=== PATIENT | male | born 1970 | race Caucasian/White ===

== ENCOUNTER 2020-08-14 17:03 | Observation (INO) | payer BC, OTHER, SELFPAY ==
--- NOTE | 2020-08-14 17:24 | RAD REPORT ---
EXAM DESCRIPTION: CT - Ct Stroke Brain Wo Cont - 08/14/2020 5:18 pm CLINICAL HISTORY: WEAKNESS Headache, drowsiness, CVA symptomology COMPARISON: No comparisons TECHNIQUE: All CT scans are performed using dose optimization technique as appropriate and may inclu de automated exposure control or mA/KV adjustment according to patient size. FINDINGS: No intracranial hemorrhage, hydrocephalus or extra-axial fluid collection.No areas of brai n edema or evidence of midline shift. The paranasal sinuses and mastoids are clear. The calvarium is intact. IMPRESSION: No acute intracranial abnormality. The findings were discussed with Dr. Gomez On 08/14/2020 at 5:20 p.m. by telephone.
[2020-08-14 17:35] LABS: Absolute Lymphocytes (CBC) 2.4 K/uL (0.7-4.9); Basophils % 0.4 % (0-1.3); Hematocrit 47.3 % (39.6-49.0); Lymphocytes % 26.6 % (15.3-44.8); MPV 8.3 fL (7.6-11.3); RBC Red Blood Cell Count 5.75 M/uL (4.33-5.43)
[2020-08-14 17:36] LABS: Protime INR 1.09
[2020-08-14 17:50] LABS: ALT/SGPT 34 U/L (12-78); AST/SGOT 17 U/L (15-37); Albumin 4.2 g/dL (3.4-5.0); Alkaline Phosphatase 75 U/L (45-117); BUN Blood Urea Nitrogen 16 mg/dL (7-18); Bicarbonate 29 mmol/L (21-32); Bilirubin Direct < 0.1 mg/dL (0-0.2); Bilirubin Total 0.4 mg/dL (0.2-1.0); Glucose Level 122 mg/dL (74-106); Magnesium 2.3 mg/dL (1.8-2.4); NT PRO-BNP 72 pg/mL (<125); Potassium 4.1 mmol/L (3.5-5.1); Protein, Total 7.8 g/dL (6.4-8.2); Sodium Level 141 mmol/L (136-145); Troponin (Emerg Dept Use Only) < 0.02 ng/mL (0.0-0.045)
[2020-08-14] MEDS ORDERED: ASPIRIN 81 MG CHEWABLE TABLET ONE (18:00)
[2020-08-14] MEDS ORDERED: NA CHLORIDE 0.9% 100 ML ONE (18:01)
[2020-08-14] MEDS ORDERED: FOLIC ACID 5 MG/ML VIAL ONE (18:02)
[2020-08-14] MEDS ORDERED: NA CHLORIDE 0.9% 1,000 ML ONE (18:02)
--- NOTE | 2020-08-14 18:30 | RAD REPORT ---
EXAM DESCRIPTION: RAD - Chest Single View - 08/14/2020 6:17 pm CLINICAL HISTORY: COUGH Chest pain. COMPARISON: CHEST SINGLE VIEW dated 09/05/2013 FINDINGS: Portable technique limits examination quality. The lungs are grossly clear. The heart is normal in size. No displaced fractures. IMPRESSION: No acute intrathoracic process suspected.
--- NOTE | 2020-08-14 18:30 | ER ---
Nurse's Notes [facility] Name: Lee Waters Age: 50 yrs Sex: Male : 1970 Arrival Date: 08/14/2020 Time: 17:07 Bed 16 Private MD: Diagnosis: Transient cerebral ischemic attack, unspecified;Weakness-left sided Presentation: 08/14 17:08 Acuity: AGA 2 ca1 17:08 Onset of symptoms was August 14, 2020 at 10:45. ca1 17:09 Risk Assessment: Do you want to hurt yourself or someone else? Patient reports no ca1 desire to harm self or others. 17:09 Coronavirus screen: Client denies travel out of the [place] in the last 14 days. At this ca1 time, the client does not indicate any symptoms associated with coronavirus-19. Ebola Screen: Patient negative for fever greater than or equal to 101.5 degrees Fahrenheit, and additional compatible Ebola Virus Disease symptoms Patient denies exposure to infectious person. Patient denies travel to an Ebola-affected area in the 21 days before illness onset. No symptoms or risks identified at this time. No acute neurological deficit is noted. The patients blood glucose was checked before arriving to the hospital and was found to be normal. Initial Sepsis Screen: Does the patient meet any 2 criteria? No. Patient's initial sepsis screen is negative. Does the patient have a suspected source of infection? No. Patient's initial sepsis screen is negative. 17:09 Method Of Arrival: Ambulatory ca1 17:09 Chief complaint: Patient states: At confucianist around 1045 noticed sluggishness of L side ca1 of the body, L leg and L arm. Took a nap at noon time, woke up still feeling sluggish and weak on the L side of the body. Still feels a little sluggish on the L Leg at this time. VAN Negative. Negative slurring. Negative facial droop. A\T\Ox 4. Stroke Activation: Symptom onset > 6 hours Physician: Stroke Attending; Name: ; Notified At: ; Arrived At: Physician: Chief Stroke Resident; Name: ; Notified At: ; Arrived At: Physician: Stroke Resident; Name: ; Notified At: ; Arrived At: Physician: ED Attending; Name: ; Notified At: ; Arrived At: Physician: ED Resident; Name: ; Notified At: ; Arrived At: Historical: - Allergies: 17:31 No Known Allergies; ca1 - Home Meds: 17:31 Lexapro 10 mg Oral tab 1 tab once daily [Active]; lisinopril 5 mg Oral tab 1 tab once ca1 daily [Active]; - PMHx: 17:31 Hypertension; Anxiety; ca1 - Immunization history:: Flu vaccine is not up to date. - Social history:: Smoking status: Patient denies any tobacco usage or history of. - Family history:: not pertinent. Screenin:30 Abuse screen: Denies threats or abuse. Nutritional screening: No deficits noted. jd3 Tuberculosis screening: No symptoms or risk factors identified. Fall Risk Ambulatory Aid- None/Bed Rest/Nurse Assist (0 pts). Gait- Normal/Bed Rest/Wheelchair (0 pts) Mental Status- Oriented to own ability (0 pts). Total Queen Fall Scale indicates No Risk (0-24 pts). Assessment: 17:08 VAN Scoring: Arm Drift: Patients demonstrates NO arm weakness. Patient is VAN Negative. ca1 17:26 Patient has been NPO before screening. The patient is alert, and able to follow ca1 commands. The patient does not exhibit slurred or garbled speech. The patient is not exhibiting difficulty speaking. The patient does not exhibit difficulty understanding words. The patient is able to swallow own secretions with no drooling or need for suction. Patient tolerated one teaspoon of water. No drooling, immediate coughing, gurgling, or clearing of the throat was noted. The patient tolerated 90mL of water. No drooling, immediate coughing, gurgling, or clearing of the throat was noted. The patient passed the bedside swallow screening. Oral medications may be given as ordered. Contact Physician for further diet orders. Provider notified of bedside swallow screening results: Baljinder Gomez MD. 17:50 T-PA (Activase) Screening: Contraindications: Patient reports onset of signs and jd3 symptoms of stroke greater than 6 hours ago:. General: Appears in no apparent distress. comfortable, Behavior is calm, cooperative, appropriate for age. Pain: Denies pain. Neuro: Level of Consciousness is awake, alert, obeys commands, Oriented to person, place, time, situation, Picking Machine Operator Helper are equal bilaterally Moves all extremities. Full function Gait is steady, Speech is normal, Facial symmetry appears normal, Pupils are PERRLA, Intact Reports numbness in left arm and left leg since 1000 today. Cardiovascular: Denies chest pain, Capillary refill < 3 seconds Patient's skin is warm and dry. Rhythm is regular. Respiratory: Airway is patent Respiratory effort is even, unlabored, Respiratory pattern is regular, symmetrical, Denies cough, shortness of breath. GI: No signs and/or symptoms were reported involving the gastrointestinal system. : No signs and/or symptoms were reported regarding the genitourinary system. EENT: No signs and/or symptoms were reported regarding the EENT system. Derm: Skin is intact, Skin is dry, Skin is normal, Skin temperature is warm. Musculoskeletal: Circulation, motion, and sensation intact. Range of motion: intact in all extremities. 18:48 Reassessment: Patient appears in no apparent distress at this time. No changes from jd3 previously documented assessment. Patient and/or family updated on plan of care and expected duration. Pain level reassessed. Patient is alert, oriented x 3, equal unlabored respirations, skin warm/dry/pink. Patient denies pain at this time. 19:23 Reassessment: Patient appears in no apparent distress at this time. Patient and/or mg2 family updated on plan of care and expected duration. Pain level reassessed. Patient is alert, oriented x 3, equal unlabored respirations, skin warm/dry/pink. 21:36 Reassessment: nurse will call me for report. mg2 21:50 Reassessment: Patient appears in no apparent distress at this time. mg2 Vital Signs: 17:20 BP 149 / 86; Pulse 91; Resp 16 S; Temp 98.1(O); Pulse Ox 100% on R/A; Weight 117.93 kg ca1 (R); Height 6 ft. 2 in. (187.96 cm) (R); Pain 0/10; 18:48 BP 173 / 119; Pulse 80; Resp 17 S; Pulse Ox 99% on R/A; jd3 19:23 BP 164 / 108; Pulse 81; Resp 18; Pulse Ox 100% on R/A; Pain 0/10; mg2 20:30 BP 150 / 82; Pulse 90; Resp 18; Pulse Ox 100% on R/A; mg2 21:35 BP 145 / 89; Pulse 80; Resp 18; Pulse Ox 100% on R/A; mg2 17:20 Body Mass Index 33.38 (117.93 kg, 187.96 cm) ca1 18:48 provider notified of high BP jd3 NIH Stroke Scale Scores: 17:50 NIHSS Score: 0 jd3 18:26 NIHSS Score: 0 [facility] ED Course: 17:07 Patient arrived in ED. bg2 17:10 Baljinder Gomez MD is Attending Physician. amy 17:15 Triage completed. ca1 17:23 Indy Bacon, RN is Primary Nurse. iw 17:23 Initial lab(s) drawn, by me, sent to lab. Inserted saline lock: 20 gauge in right iw antecubital area, using aseptic technique. Blood collected. 17:31 Arm band placed on right wrist. ca1 17:54 Víctor Desai, MAURICIO is Primary Nurse. jd3 18:29 Josh Raphael MD is Hospitalizing Provider. amy 18:57 Patient has correct armband on for positive identification. Bed in low position. Call jd3 light in reach. Side rails up X 1. threat monitoring analyst on. Pulse ox on. NIBP on. 19:02 No provider procedures requiring assistance completed. Patient admitted, IV remains in jd3 place. 20:07 Tucker Brown, RN is Primary Nurse. mg2 Administered Medications: 17:55 Drug: NS 0.9% 1000 ml Route: IV; Rate: 1 bolus; Site: right antecubital; jd3 18:55 Follow up: Response: No adverse reaction; IV Status: Completed infusion; IV Intake: jd3 1000ml 17:55 Drug: Aspirin Chewable Tablet 324 mg Route: PO; jd3 18:55 Follow up: Response: No adverse reaction jd3 17:56 Drug: foLIC Acid 1 mg Route: IVPB; Site: right antecubital; jd3 18:50 Follow up: Response: No adverse reaction; IV Status: Completed infusion jd3 18:41 Drug: PlaVIX 75 mg Route: PO; jd3 19:01 Follow up: Response: No adverse reaction jd3 18:41 Drug: Lipitor 20 mg Route: PO; jd3 19:01 Follow up: Response: No adverse reaction jd3 Point of Care Testing: Blood Glucose: 17:31 Blood Glucose: 124 mg/dL; ca1 Ranges: Intake: 18:55 IV: 1000ml; Total: 1000ml. jd3 Outcome: 18:29 Decision to Hospitalize by Provider. amy 21:53 Admitted to Med/surg accompanied by tech, via wheelchair, room 220, with chart, Report mg2 called to MAURICIO Todd 21:53 Condition: stable 21:53 Instructed on the need for admit, Demonstrated understanding of instructions. 21:54 Patient left the ED. mg2 NIH Stroke Scale - NIH Stroke Score Date: 08/14/2020 Time: 17:50 Total Score = 0 1a. Level of Consciousness (LOC) - 0(Alert) 1b. Level of Consciousness (LOC) (Year \T\ Age) - 0(Both) 1c. LOC Commands (Open \T\ Closes Eyes/Spiral Tube Winder Helper) - 0(Both) 2. Best Gaze (Lateral Gaze Paresis) - 0(Normal) 3. Visual Field Loss - 0(No visual loss) 4. Facial Palsy - 0(Normal) 5a. Left Arm: Motor (10-second hold) - 0(No drift) 5b. Right Arm: Motor (10-second hold) - 0(No drift) 6a. Left Leg: Motor (5-second hold - always test supine) - 0(No drift) 6b. Right Leg: Motor (5-second hold - always test supine) - 0(No drift) 7. Limb Ataxia (finger/nose \T\ heel/pinto - test with eyes open) - 0(Absent) 8. Sensory Loss (pinprick arms/legs/face) - 0(Normal) 9. Best Language: Aphasia (description/naming/reading) - 0(No aphasia) 10. Dysarthria (speech clarity - read or repeat words) - 0(Normal) 11. Extinction and Inattention (visual/tactile/auditory/spatial/personal) - 0(No abnormality) Initials: jd3 NIH Stroke Scale - NIH Stroke Score Date: 08/14/2020 Time: 18:26 Total Score = 0 1a. Level of Consciousness (LOC) - 0(Alert) 1b. Level of Consciousness (LOC) (Year \T\ Age) - 0(Both) 1c. LOC Commands (Open \T\ Closes Eyes/Spiral Tube Winder Helper) - 0(Both) 2. Best Gaze (Lateral Gaze Paresis) - 0(Normal) 3. Visual Field Loss - 0(No visual loss) 4. Facial Palsy - 0(Normal) 5a. Left Arm: Motor (10-second hold) - 0(No drift) 5b. Right Arm: Motor (10-second hold) - 0(No drift) 6a. Left Leg: Motor (5-second hold - always test supine) - 0(No drift) 6b. Right Leg: Motor (5-second hold - always test supine) - 0(No drift) 7. Limb Ataxia (finger/nose \T\ heel/pinto - test with eyes open) - 0(Absent) 8. Sensory Loss (pinprick arms/legs/face) - 0(Normal) 9. Best Language: Aphasia (description/naming/reading) - 0(No aphasia) 10. Dysarthria (speech clarity - read or repeat words) - 0(Normal) 11. Extinction and Inattention (visual/tactile/auditory/spatial/personal) - 0(No abnormality) Initials: amy Signatures: Baljinder Gomez MD MD cha Williams, Irene, RN RN iw Ariadne Rutherford bg2 Víctor Desai RN RN jd3 Tucker Brown RN RN mg2 Felicity Hamilton RN RN ca1 Corrections: (The following items were deleted from the chart) 19:02 18:48 BP 173 / 119; Pulse 80bpm; Resp 17bpm; Spontaneous; Pulse Ox 99% RA; jd3 jd3
--- NOTE | 2020-08-14 18:30 | EDPHYS ---
Physician Documentation [facility] Name: Lee Waters Age: 50 yrs Sex: Male : 1970 Arrival Date: 08/14/2020 Time: 17:07 Bed 16 Private MD: ED Physician Baljinder Gomez HPI: 08/14 18:24 This 50 yrs old Male presents to ER via Ambulatory with complaints of amy Possible stroke. 18:24 The patient's problem is reported as weakness, in the left upper extremity, in the left amy lower extremity. Onset: The symptoms/episode began/occurred this morning. Duration: The episode is continuous. Context: the episode(s) was witnessed, by family, , symptoms became apparent at 10:45. Historical: - Allergies: 17:31 No Known Allergies; ca1 - Home Meds: 17:31 Lexapro 10 mg Oral tab 1 tab once daily [Active]; lisinopril 5 mg Oral tab 1 tab once ca1 daily [Active]; - PMHx: 17:31 Hypertension; Anxiety; ca1 - Immunization history:: Flu vaccine is not up to date. - Social history:: Smoking status: Patient denies any tobacco usage or history of. - Family history:: not pertinent. ROS: 18:24 Constitutional: Negative for fever, chills, and weight loss, Eyes: Negative for injury, amy pain, redness, and discharge, ENT: Negative for injury, pain, and discharge, Neck: Negative for injury, pain, and swelling, Cardiovascular: Negative for chest pain, palpitations, and edema, Respiratory: Negative for shortness of breath, cough, wheezing, and pleuritic chest pain, Abdomen/GI: Negative for abdominal pain, nausea, vomiting, diarrhea, and constipation, Back: Negative for injury and pain, : Negative for injury, bleeding, discharge, and swelling, Skin: Negative for injury, rash, and discoloration, Psych: Negative for depression, anxiety, suicide ideation, homicidal ideation, and hallucinations, Allergy/Immunology: Negative for hives, rash, and allergies, Endocrine: Negative for neck swelling, polydipsia, polyuria, polyphagia, and marked weight changes. 18:24 Neuro: Positive for numbness, weakness, of the left arm and left leg. Exam: 18:24 Radiologist reports: negative amy 18:24 Constitutional: This is a well developed, well nourished patient who is awake, alert, and in no acute distress. Head/Face: Normocephalic, atraumatic. Eyes: Pupils equal round and reactive to light, extra-ocular motions intact. Lids and lashes normal. Conjunctiva and sclera are non-icteric and not injected. Cornea within normal limits. Periorbital areas with no swelling, redness, or edema. ENT: Nares patent. No nasal discharge, no septal abnormalities noted. Tympanic membranes are normal and external auditory canals are clear. Oropharynx with no redness, swelling, or masses, exudates, or evidence of obstruction, uvula midline. Mucous membranes moist. Neck: Trachea midline, no thyromegaly or masses palpated, and no cervical lymphadenopathy. Supple, full range of motion without nuchal rigidity, or vertebral point tenderness. No Meningismus. Chest/axilla: Normal chest wall appearance and motion. Nontender with no deformity. No lesions are appreciated. Cardiovascular: Regular rate and rhythm with a normal S1 and S2. No gallops, murmurs, or rubs. Normal PMI, no JVD. No pulse deficits. Respiratory: Lungs have equal breath sounds bilaterally, clear to auscultation and percussion. No rales, rhonchi or wheezes noted. No increased work of breathing, no retractions or nasal flaring. Abdomen/GI: Soft, non-tender, with normal bowel sounds. No distension or tympany. No guarding or rebound. No evidence of tenderness throughout. Back: No spinal tenderness. No costovertebral tenderness. Full range of motion. Male : Normal genitalia with no discharge or lesions. Skin: Warm, dry with normal turgor. Normal color with no rashes, no lesions, and no evidence of cellulitis. MS/ Extremity: Pulses equal, no cyanosis. Neurovascular intact. Full, normal range of motion. Neuro: Awake and alert, GCS 15, oriented to person, place, time, and situation. Cranial nerves II-XII grossly intact. Motor strength 5/5 in all extremities. Sensory grossly intact. Cerebellar exam normal. Normal gait. Psych: Awake, alert, with orientation to person, place and time. Behavior, mood, and affect are within normal limits. Vital Signs: 17:20 BP 149 / 86; Pulse 91; Resp 16 S; Temp 98.1(O); Pulse Ox 100% on R/A; Weight 117.93 kg ca1 (R); Height 6 ft. 2 in. (187.96 cm) (R); Pain 0/10; 18:48 BP 173 / 119; Pulse 80; Resp 17 S; Pulse Ox 99% on R/A; jd3 19:23 BP 164 / 108; Pulse 81; Resp 18; Pulse Ox 100% on R/A; Pain 0/10; mg2 20:30 BP 150 / 82; Pulse 90; Resp 18; Pulse Ox 100% on R/A; mg2 21:35 BP 145 / 89; Pulse 80; Resp 18; Pulse Ox 100% on R/A; mg2 17:20 Body Mass Index 33.38 (117.93 kg, 187.96 cm) ca1 18:48 provider notified of high BP jd3 NIH Stroke Scale Scores: 17:50 NIHSS Score: 0 jd3 18:26 NIHSS Score: 0 amy MDM: 17:40 Patient medically screened. amy 18:27 Differential diagnosis: CVA, TIA. Data reviewed: vital signs, nurses notes, lab test amy result(s), EKG, radiologic studies, CT scan, plain films. Data interpreted: surveillance monitor: rate is 91 beats/min, rhythm is regular, Pulse oximetry: on room air is 100 %. Test interpretation: by ED physician or midlevel provider: ECG, plain radiologic studies. Counseling: I had a detailed discussion with the patient and/or guardian regarding: the historical points, exam findings, and any diagnostic results supporting the discharge/admit diagnosis, lab results, radiology results. Physician consultation: Frederick Goldstein MD and will see patient in inpatient room, no tpa, ass and plavix, lipitor now. 18:30 ED course: began at 1045am, not a tps candidate, dw dr goldstein, aspirin, plavix, amy lipitor, folic acid is the plan. 08/14 17:14 Order name: Basic Metabolic Panel amy 08/14 17:14 Order name: CBC with Diff 08/14 17:14 Order name: LFT's 08/14 17:14 Order name: Magnesium amy 08/14 17:14 Order name: NT PRO-BNP 08/14 17:14 Order name: PT-INR 08/14 17:14 Order name: Troponin (emerg Dept Use Only) [facility] 08/14 17:50 Order name: Basic Metabolic Panel; Complete Time: 17:59 EDMS 08/14 17:50 Order name: Liver (Hepatic) Function; Complete Time: 17:59 EDMS 08/14 17:50 Order name: Troponin (Emerg Dept Use Only); Complete Time: 17:59 EDMS 08/14 17:50 Order name: NT PRO-BNP; Complete Time: 17:59 EDMS 08/14 17:50 Order name: Magnesium; Complete Time: 17:59 EDMS 08/14 18:05 Order name: CBC with Automated Diff; Complete Time: 18:10 EDMS 08/14 18:12 Order name: Protime (+INR) [facility] 08/14 17:14 Order name: CT Stroke Brain w/o Contrast [place] 08/14 17:14 Order name: XRAY Chest (1 view) [facility] 08/14 17:14 Order name: CT Stroke Brain w/o Contrast [facility] 08/14 17:14 Order name: CT Head Angio [facility] 08/14 17:25 Order name: CT; Complete Time: 17:59 [facility] 08/14 18:20 Order name: COVID-19 : Document "Date of Symptom Onset" if Symptomatic. [facility] 08/14 18:31 Order name: RAD [facility] 08/14 18:33 Order name: CT [facility] 08/14 18:39 Order name: CT [facility] 08/14 19:58 Order name: [facility] 08/14 20:54 Order name: SARS-COV-2 RT PCR [facility] 08/14 17:14 Order name: EKG; Complete Time: 17:15 [facility] 08/14 17:14 Order name: Cardiac monitoring; Complete Time: 17:57 [facility] 08/14 17:14 Order name: EKG - Nurse/Tech; Complete Time: 17:57 [facility] 08/14 17:14 Order name: IV Saline Lock; Complete Time: 17:32 [facility] 08/14 17:14 Order name: Labs collected and sent; Complete Time: 17:32 [facility] 08/14 17:14 Order name: O2 Per Protocol; Complete Time: 17:57 [facility] 08/14 17:14 Order name: O2 Sat Monitoring; Complete Time: 17:57 [facility] Administered Medications: 17:55 Drug: NS 0.9% 1000 ml Route: IV; Rate: 1 bolus; Site: right antecubital; jd3 18:55 Follow up: Response: No adverse reaction; IV Status: Completed infusion; IV Intake: jd3 1000ml 17:55 Drug: Aspirin Chewable Tablet 324 mg Route: PO; jd3 18:55 Follow up: Response: No adverse reaction jd3 17:56 Drug: foLIC Acid 1 mg Route: IVPB; Site: right antecubital; jd3 18:50 Follow up: Response: No adverse reaction; IV Status: Completed infusion jd3 18:41 Drug: PlaVIX 75 mg Route: PO; jd3 19:01 Follow up: Response: No adverse reaction jd3 18:41 Drug: Lipitor 20 mg Route: PO; jd3 19:01 Follow up: Response: No adverse reaction jd3 Point of Care Testing: Blood Glucose: 17:31 Blood Glucose: 124 mg/dL; ca1 Ranges: Critical Glucose Levels:Adult <50 mg/dl or >400 mg/dl <40 mg/dl or >180 mg/dl Disposition: 08/14/20 18:29 Hospitalization ordered by Josh Raphael for Observation. Preliminary diagnosis are Transient cerebral ischemic attack, unspecified, Weakness - left sided. - Bed requested for Telemetry/MedSurg (observation). - Status is Observation. mg2 - Condition is Stable. - Problem is new. - Symptoms have improved. NIH Stroke Scale - NIH Stroke Score Date: 08/14/2020 Time: 17:50 Total Score = 0 1a. Level of Consciousness (LOC) - 0(Alert) 1b. Level of Consciousness (LOC) (Year \\T\\ Age) - 0(Both) 1c. LOC Commands (Open \\T\\ Closes Eyes/Powertrain Engineer) - 0(Both) 2. Best Gaze (Lateral Gaze Paresis) - 0(Normal) 3. Visual Field Loss - 0(No visual loss) 4. Facial Palsy - 0(Normal) 5a. Left Arm: Motor (10-second hold) - 0(No drift) 5b. Right Arm: Motor (10-second hold) - 0(No drift) 6a. Left Leg: Motor (5-second hold - always test supine) - 0(No drift) 6b. Right Leg: Motor (5-second hold - always test supine) - 0(No drift) 7. Limb Ataxia (finger/nose \\T\\ heel/pinto - test with eyes open) - 0(Absent) 8. Sensory Loss (pinprick arms/legs/face) - 0(Normal) 9. Best Language: Aphasia (description/naming/reading) - 0(No aphasia) 10. Dysarthria (speech clarity - read or repeat words) - 0(Normal) 11. Extinction and Inattention (visual/tactile/auditory/spatial/personal) - 0(No abnormality) Initials: liana NIH Stroke Scale - NIH Stroke Score Date: 08/14/2020 Time: 18:26 Total Score = 0 1a. Level of Consciousness (LOC) - 0(Alert) 1b. Level of Consciousness (LOC) (Year \\T\\ Age) - 0(Both) 1c. LOC Commands (Open \\T\\ Closes Eyes/Powertrain Engineer) - 0(Both) 2. Best Gaze (Lateral Gaze Paresis) - 0(Normal) 3. Visual Field Loss - 0(No visual loss) 4. Facial Palsy - 0(Normal) 5a. Left Arm: Motor (10-second hold) - 0(No drift) 5b. Right Arm: Motor (10-second hold) - 0(No drift) 6a. Left Leg: Motor (5-second hold - always test supine) - 0(No drift) 6b. Right Leg: Motor (5-second hold - always test supine) - 0(No drift) 7. Limb Ataxia (finger/nose \\T\\ heel/pinto - test with eyes open) - 0(Absent) 8. Sensory Loss (pinprick arms/legs/face) - 0(Normal) 9. Best Language: Aphasia (description/naming/reading) - 0(No aphasia) 10. Dysarthria (speech clarity - read or repeat words) - 0(Normal) 11. Extinction and Inattention (visual/tactile/auditory/spatial/personal) - 0(No abnormality) Initials: amy Signatures: Dispatcher [employer] EDBaljinder Patel MD MD cha Attema, Lee, DIRECTOR FINANCIAL PLANNING-C DIRECTOR FINANCIAL PLANNING-Cla1 Myriam Pierson, MAURICIO RN cg Víctor Desai RN RN jd3 Tucker Brown RN RN mg2 Felicity Hamilton RN RN ca1 Corrections: (The following items were deleted from the chart) 21:02 18:29 Hospitalization Ordered by Josh Raphael MD for Observation. Preliminary cg diagnosis is Transient cerebral ischemic attack, unspecified; Weakness - left sided. Bed requested for Telemetry/MedSurg (observation). Status is Observation. Condition is Stable. Problem is new. Symptoms have improved. amy 21:54 21:02 08/14/2020 18:29 Hospitalization Ordered by Josh Raphael MD for mg2 Observation. Preliminary diagnosis is Transient cerebral ischemic attack, unspecified; Weakness - left sided. Bed requested for Telemetry/MedSurg (observation). Status is Observation. Condition is Stable. Problem is new. Symptoms have improved. cg
--- NOTE | 2020-08-14 18:32 | RAD REPORT ---
EXAM DESCRIPTION: CT - Head angio - 08/14/2020 6:10 pm CLINICAL HISTORY: TIA;Weakness Headache, drowsiness, CVA symptomology COMPARISON: Ct Stroke Brain Wo Cont dated 08/14/2020 TECHNIQUE: CT angiography of the head was performed with MIPs. All CT scans are performed using dose optimization technique as appropriate and may include automated exposure control or mA/KV adjustment according to patient size. FINDINGS: No evidence of aneurysm is detected. No flow-limiting stenosis or vascular malformation id entified. Antegrade flow is seen in the vertebral arteries. The vertebral arteries are codominant. The visualized dural venous sinuses are patent. IMPRESSION: No significant flow abnormality is detected.
--- NOTE | 2020-08-14 18:37 | RAD REPORT ---
EXAM DESCRIPTION: CT - Neck Angio - 08/14/2020 6:09 pm CLINICAL HISTORY: possible stroke Headache, drowsiness, CVA symptomology COMPARISON: No comparisons TECHNIQUE: CT angiography of the neck vessels was performed with MIPs. All CT scans are performed using dose optimization technique as appropriate and may include automated exposure control or mA/KV adjustment according to patient size. FINDINGS: A left aortic arch is identified with normal three vessel configuration of the great vesse ls. No significant flow abnormality is seen of the common carotid bilaterally. Small soft plaquing is seen in both carotid bulbs, with slightly irregular plaque noted on the left. No significant stenosis is identified involving the cervical segments of both internal carotid arteri es. Normal flow is seen within both vertebral arteries. IMPRESSION: Mild soft plaque is seen in both carotid bulbs, with mildly irregular plaque noted on th e left. No significant carotid stenosis is seen.
[2020-08-14] MEDS ORDERED: CLOPIDOGREL 75 MG TABLET ONE (18:46)
[2020-08-14] MEDS ORDERED: ATORVASTATIN 20 MG TAB ONE (18:46)
--- NOTE | 2020-08-14 20:30 | P.HP ---
Certification for Inpatient Patient admitted to: Observation With expected LOS: <2 Midnights Patient will require the following post-hospital care: None Practitioner: I am a practitioner with admitting privileges, knowledge of patient current condition, hospital course, and medical plan of care. Services: Services provided to patient in accordance with Admission requirements found in Title 42 Section 412.3 of the Code of Federal Regulations <Paul Conley - Last Filed: 08/14/20 20:26> Patient History Date of Service: 08/14/20 Primary Care Provider: Dr. Velasco Reason for admission: Left-sided weakness History of Present Illness: 50-year-old male with history of hypertension, anxiety presents emergency department for left-sided weakness. Patient reports that approximately 1045 this morning while he is in [employer] when he stood up he noticed that his left leg felt heavy, then noticed that his left arm was also feeling heavy. Patient tried to take a nap and then was walk around in his backyard and was persistent had increasing left-sided heaviness. Patient sent to the emergency room for evaluation CT head with and without contrast negative for acute findings chest x-ray unremarkable, labs unremarkable. Patient persist to have left-sided heaviness without objective weakness, ED provider wishes to admit for further evaluation and management. - Past Medical/Surgical History -: Hypertension -: Anxiety -: Basal cell carcinoma -: Basal cell carcinoma excision Psychosocial/ Personal History: Patient works as a heavy equipment operator apprentice lives with his - Family History Father -: Cancer - Social History Smoking Status: Never smoker Alcohol use: Yes CD- Drugs: No Caffeine use: Yes Place of Residence: Home <Paul Conley - Last Filed: 08/14/20 20:26> Date of Service: 08/15/20 <Josh Raphael - Last Filed: 08/15/20 17:43> Allergies No Known Allergies Allergy (Verified 08/15/20 00:15) Review of Systems Unremarkable Neurological: As per HPI <Paul Conley - Last Filed: 08/14/20 20:26> Physical Examination - Physical Exam General: Alert, In no apparent distress HEENT: Atraumatic, PERRLA, Mucous membr. moist/pink Neck: Supple, 2+ carotid pulse no bruit, No LAD Respiratory: Clear to auscultation bilaterally, Normal air movement Cardiovascular: Regular rate/rhythm, Normal S1 S2 Gastrointestinal: Normal bowel sounds, No tenderness Musculoskeletal: No tenderness Integumentary: No rashes Neurological: Normal gait, Normal speech, Normal strength at 5/5 x4 extr, Normal tone, Normal affect, Other (Patient reports sensation of heaviness to left upper and lower extremity) - Studies Laboratory Data (last 24 hrs) 08/14/20 17:22: PT 12.6 H, INR 1.09 08/14/20 17:22: WBC 9.20, Hgb 15.9, Hct 47.3, Plt Count 240 08/14/20 17:22: Sodium 141, Potassium 4.1, BUN 16, Creatinine 0.99, Glucose 122 H, Magnesium 2.3, Total Bilirubin 0.4, AST 17, ALT 34, Alkaline Phosphatase 75 <Paul Conley - Last Filed: 08/14/20 20:26> - Studies Laboratory Data (last 24 hrs) 08/14/20 17:22: PT 12.6 H, INR 1.09 08/14/20 17:22: WBC 9.20, Hgb 15.9, Hct 47.3, Plt Count 240 08/14/20 17:22: Sodium 141, Potassium 4.1, BUN 16, Creatinine 0.99, Glucose 122 H, Magnesium 2.3, Total Bilirubin 0.4, AST 17, ALT 34, Alkaline Phosphatase 75 <Josh Raphael - Last Filed: 08/15/20 17:43> Assessment and Plan - Plan Assessment Left-sided weakness rule out CVA Hypertension Anxiety Plan Left-sided weakness rule out CVA: MRI stroke protocol, echocardiogram ordered. Neurology consult in place. Patient has been taking daily aspirin at home, continue aspirin, Plavix, folic acid, statin therapy. Continue lisinopril but will allow for some permissive hypertension. Lipid, thyroid panel with morning labs. PT/speech therapy consult in place. Appreciate further input from neurology. Hypertension: Continue lisinopril, allow for permissive hypertension. Anxiety: Continue Lexapro, p.r.n. Xanax. Discharge Plan: Home - Advance Directives Does patient have a Living Will: No Does patient have a Durable POA for Healthcare: No - Code Status/Comfort Care Code Status Assessed: Yes (Full code) Critical Care: No Time Spent Managing Pts Care (In Minutes): 55 <Paul Conley - Last Filed: 08/14/20 20:26> - Plan Plan of care reviewed as noted above by Paul Conley Left sided heaviness /clumsiness of L leg and L arm MRI ordered patient with high level anxiety <Josh Raphael - Last Filed: 08/15/20 17:43>
[2020-08-14] MEDS ORDERED: ACETAMINOPHEN 500 MG TAB PO PRN (22:11)
[2020-08-14] MEDS ORDERED: ONDANSETRON 4 MG/2 ML VIAL IV PRN (22:11)
[2020-08-14 22:25] VITALS: BMI 33.4
[2020-08-14] MEDS: ALPRAZOLAM 0.25 MG TABLET PO PRN (23:10)
[2020-08-15 04:17] LABS: Absolute Lymphocytes (CBC) 2.1 K/uL (0.7-4.9); Basophils % 0.4 % (0-1.3); Hematocrit 43.7 % (39.6-49.0); Lymphocytes % 24.9 % (15.3-44.8); MPV 8.1 fL (7.6-11.3)
[2020-08-15 04:42] LABS: Albumin 3.6 g/dL (3.4-5.0); Bilirubin Total 0.3 mg/dL (0.2-1.0); Magnesium 2.4 mg/dL (1.8-2.4); Potassium 4.2 mmol/L (3.5-5.1); Protein, Total 6.9 g/dL (6.4-8.2)
[2020-08-15 04:48] LABS: Thyroid Stimulating Hormone 4.74 uIU/mL (0.360-3.740)
[2020-08-15] MEDS ORDERED: ASPIRIN EC 81 MG TAB PO SCH (09:00)
[2020-08-15] MEDS ORDERED: lisinopriL 5 MG TAB PO SCH (09:00)
[2020-08-15] MEDS ORDERED: CLOPIDOGREL 75 MG TABLET PO SCH (09:00)
[2020-08-15] MEDS ORDERED: ESCITALOPRAM 20 MG TAB PO SCH (09:00)
[2020-08-15] MEDS ORDERED: FOLIC ACID 1 MG TABLET PO SCH (09:00)
[2020-08-15] MEDS ORDERED: ENOXAPARIN 40 MG/0.4 ML SQ SCH (09:00)
[2020-08-15] MEDS: ALPRAZOLAM 0.25 MG TABLET PO PRN ×2 (09:49→15:15)
[2020-08-15] MEDS ORDERED: LORazepam 2 MG/ML VIAL IV ONE (10:58)
--- NOTE | 2020-08-15 14:54 | ECHO ---
HEIGHT: 6 ft 2 in WEIGHT: 260 lb 3.2 oz DATE OF STUDY: 08/15/[address]: Paul Conley NP 2-DIMENSIONAL: YES M.MODE: YES DOPPLER: YES COLOR FLOW: YES TDS: YES PORTABLE: DEFINITY: BUBBLE STUDY: DIAGNOSIS: LEFT SIDED WEAKNESS, POSSIBLE CEREBRAL VASCULAR ACCIDENT CARDIAC HISTORY: CATHERIZATION: NO SURGERY: NO PROSTHETIC VALVE: NO PACEMAKER: NO MEASUREMENTS (cm) DIASTOLIC (NORMALS) SYSTOLIC (NORMALS) IVSd 0.8 (0.6-1.2) LA Diam 3.1 (1.9-4.0) LVEF 56% LVIDd 3.6 (3.5-5.7) LVIDs 2.5 (2.0-3.5) %FS 28% LVPWd 1.0 (0.6-1.2) Ao Diam 2.9 (2.0-3.7) 2 DIMENSIONAL ASSESSMENT: RIGHT ATRIUM: NORMAL LEFT ATRIUM: NORMAL RIGHT VENTRICLE: NORMAL LEFT VENTRICLE: NORMAL TRICUSPID VALVE: NORMAL MITRAL VALVE: NORMAL PULMONIC VALVE: NORMAL AORTIC VALVE: NORMAL PERICARDIAL EFFUSION: NONE AORTIC ROOT: NORMAL LEFT VENTRICULAR WALL MOTION: NORMAL DOPPLER/COLOR FLOW: NORMAL COMMENTS: NORMAL LEFT VENTRICULAR EJECTION FRACTION 55-60%. NORMAL WALL MOTION. NORMAL STUDY. TECHNOLOGIST: DARIUS SAMUELS
--- NOTE | 2020-08-15 17:51 | RAD REPORT ---
EXAM DESCRIPTION: MRI - Brain W/Wo Cont - 08/15/2020 5:28 pm CLINICAL HISTORY: LEFT SIDED WEAKNESS Headache, drowsiness, CVA symptomology COMPARISON: MRA Head Wo Cont dated 08/15/2020 TECHNIQUE: Multi-sequence, multiplanar MR imaging of the brain was performed with contrast. FINDINGS: No intracranial hemorrhage, hydrocephalus, or extra-axial fluid collection. No edema or sh ift of midline structures. No intracranial mass. 6 mm acute lacunar infarct is noted right basal gang ruth posteriorly.. The midline structures are normally formed. Mastoid air cells and paranasal sinuses are clear. Post-contrast images show no abnormal enhancement to suggest tumor or infection. IMPRESSION: Small, 6 mm acute lacunar infarct noted right basal ganglia posteriorly. No pathologic post-contrast enhancement suspected.
--- NOTE | 2020-08-15 17:53 | RAD REPORT ---
EXAM DESCRIPTION: MRI - MRA Head Wo Cont - 08/15/2020 5:28 pm CLINICAL HISTORY: left sided weakness CVA COMPARISON: Head angio dated 08/14/2020 FINDINGS: 3D noncontrast [id number] MR angiography of the [place] was performed. No aneurysm, flow-limiting stenosis or vascular malformation is seen. Forward flow seen in codominant vertebral arteries. The visualized dural venous sinuses appear patent. IMPRESSION: No significant flow abnormality of the [place] is identified.
--- NOTE | 2020-08-15 17:58 | RAD REPORT ---
EXAM DESCRIPTION: MRI - MRA Neck W/Wo Cont - 08/15/2020 5:28 pm CLINICAL HISTORY: LEFT SIDED WEAKNESS Headache, drowsiness, CVA symptomology COMPARISON: Neck Angio dated 08/14/2020 FINDINGS: Contrast enhance 2D [id number] MR angiography of the neck vessels was performed. A left aortic arch is noted. There is normal branching pattern of the great vessels seen. Both subcla vian arteries and common carotid arteries are patent. Mild plaquing is suspected in both carotid bulbs. Left-sided plaquing is mildly irregular resulting i n mild luminal narrowing of less than 50% based on NASCET criteria. Antegrade flow seen in both verte bral arteries. IMPRESSION: Mildly irregular plaquing is suspect in the left carotid bulb resulting in a stenosis of less than 50% based on NASCET criteria.
--- NOTE | 2020-08-15 18:45 | P.DS ---
Admission Date: 08/14/20 Discharge Date: 08/15/20 Primary Care Provider: Dr. Velasco Disposition: ROUTINE DISCHARGE Discharge Condition: GOOD Reason for Admission: Left-sided weakness Consultations: Neurology - Dr. Garcia Procedures: CXR (08/14): No acute intrathoracic process suspected. CT Brain (08/14): No acute intracranial abnormality. CTA Head/Neck (08/14): No significant flow abnormality is detected. Antegrade flow is seen in the vertebral arteries. The vertebral arteries are codominant. Mild soft plaque is seen in both carotid bulbs, with mildly irregular plaque noted on the left. No significant carotid stenosis is seen. MRI Brain (08/15): Small, 6 mm acute lacunar infarct noted right basal ganglia posteriorly. No pathologic post-contrast enhancement suspected MRA Brain (08/15): No significant flow abnormality of the [place] is identified. MRA Neck (08/15): Mildly irregular plaquing is suspect in the left carotid bulb resulting in a stenosis of less than 50% based on NASCET criteria. Problem List: Mild Left sided weakness / incoordination secondary to right posterior basal ganglia infarct (6mm) Hypertension Anxiety Brief History of Present Illness: 50-year-old male with history of hypertension, anxiety presents emergency department for left-sided weakness. Patient reports that approximately 1045 this morning while he is in [employer] when he stood up he noticed that his left leg felt heavy, then noticed that his left arm was also feeling heavy. Patient tried to take a nap and then was walk around in his backyard and was persistent had increasing left-sided heaviness. Patient sent to the emergency room for evaluation CT head with and without contrast negative for acute findings chest x-ray unremarkable, labs unremarkable. Patient persist to have left-sided heaviness without objective weakness, ED provider wishes to admit for further evaluation and management. Hospital Course: Patient underwent MRI stroke evaluation and was found to have a small 6mm infarct in posterior basal ganglia. Neurology was consulted, and patient was discharged home on aspirin, plavix, statin, and folic acid. He was noted to have hypertension, mostly 140-160s systolic, however did go up to 180s once, but patient reported high anxiety at that time. He was also given a prescription for PRN clonidine for SBP >180. His findings were discussed, as well as the importance for allowing some permissive hypertension in the short-term. It was recommended to follow up with PCP within 3-5 days and Neurology in ~4-6 weeks. He was evaluated by PT and did well. It was recommended to consider PT in the near future if his mild symptoms persist. Vital Signs/Physical Exam: Physical Exam General: Alert, In no apparent distress HEENT: Atraumatic, PERRLA, Mucous membr. moist/pink Neck: Supple, 2+ carotid pulse no bruit, No LAD Respiratory: Clear to auscultation bilaterally, Normal air movement Cardiovascular: Regular rate/rhythm, Normal S1 S2 Gastrointestinal: Normal bowel sounds, No tenderness Musculoskeletal: No tenderness Integumentary: No rashes Neurological: CN II-XII grossly intact, Normal speech, Normal strength at 5/5 x4 extr, Normal tone, Normal affect, intact sensation in b/l upper/lower extremities. slight difficulty with [id number] and [id number] testing with left extremities compared to right. gait with slight added elevation of L foot, otherwise normal. Temp Pulse Resp BP Pulse Ox 98.0 F 90 18 170/87 H 96 08/15/20 16:00 08/15/20 16:00 08/15/20 16:00 08/15/20 16:00 08/15/20 16:00 Laboratory Data at Discharge: WBC 8.60 K/uL (4.3-10.9) 08/15/20 03:53 Hgb 14.6 g/dL (13.6-17.9) 08/15/20 03:53 Hct 43.7 % (39.6-49.0) 08/15/20 03:53 Plt Count 231 K/uL (152-406) 08/15/20 03:53 PT 12.6 SECONDS (9.5-12.5) H 08/14/20 17:22 INR 1.09 08/14/20 17:22 Sodium 142 mmol/L (136-145) 08/15/20 03:53 Potassium 4.2 mmol/L (3.5-5.1) 08/15/20 03:53 BUN 14 mg/dL (7-18) 08/15/20 03:53 Creatinine 0.96 mg/dL (0.55-1.3) 08/15/20 03:53 Glucose 104 mg/dL (74-106) 08/15/20 03:53 Magnesium 2.4 mg/dL (1.8-2.4) 08/15/20 03:53 Total Bilirubin 0.3 mg/dL (0.2-1.0) 08/15/20 03:53 AST 14 U/L (15-37) L 08/15/20 03:53 ALT 29 U/L (12-78) 08/15/20 03:53 Alkaline Phosphatase 69 U/L (45-117) 08/15/20 03:53 Triglycerides 164 mg/dL (<150) H 08/15/20 03:53 Cholesterol 184 mg/dL (<200) 08/15/20 03:53 HDL Cholesterol 35 mg/dL (40-60) L 08/15/20 03:53 Cholesterol/HDL Ratio 5.26 08/15/20 03:53 Home Medications: Alprazolam [Xanax] 0.5 mg PO TID PRN 08/15/20 Aspirin [Aspirin EC 81 MG] 81 mg PO DAILY 30 Days #30 tablet. 08/15/20 Atorvastatin Calcium [Lipitor] 40 mg PO BEDTIME 30 Days #30 tab 08/15/20 Clopidogrel Bisulfate [Plavix*] 75 mg PO DAILY 30 Days #30 tablet 08/15/20 Escitalopram Oxalate [Lexapro] 10 mg PO DAILY 08/15/20 Folic Acid 1 mg PO DAILY 30 Days #30 tablet 08/15/20 Lisinopril [Zestril] 5 mg PO DAILY 08/15/20 cloNIDine HCL [Clonidine HCl] 0.1 mg PO BID PRN 30 Days #60 tablet 08/15/20 New Medications: Aspirin [Aspirin EC 81 MG] 81 mg PO DAILY 30 Days #30 tablet. cloNIDine HCL [Clonidine HCl] 0.1 mg PO BID PRN 30 Days #60 tablet PRN Reason: Titrate To Sbp (Must Define) Folic Acid 1 mg PO DAILY 30 Days #30 tablet Atorvastatin Calcium [Lipitor] 40 mg PO BEDTIME 30 Days #30 tab Clopidogrel Bisulfate [Plavix*] 75 mg PO DAILY 30 Days #30 tablet Physician Discharge Instructions: You were found to have a small stroke (6mm lacunar infarct in your right basal ganglia) that explains the symptoms you are having. You did well with physical therapy. If your symptoms persist, physical therapy is recommended. Call Dr. Garcia's office to schedule a follow-up appointment in 4-6 weeks. You are discharged with prescriptions for aspirin 81mg, plavix, atorvastatin, folic acid, and clonidine. We want your blood pressure to be between 140-180 systolic (top number). Check your blood pressure at home. IF your systolic blood pressure is >180, take 1 pill of clonidine. Do not exceed 2 pills in 1 day. You can take a 2nd clonidine pill 4-6 hours after the first one. You can also practice some breathing techniques and other techniques to relax. If your blood pressure remains >180 despite 2 clonidine, please call your physician or consider going to the ER. Diet: Regular Activity: Ad gordo Followup: Frederick Garcia MD [ASSOCIATE-ACTIVE - CAN ADMIT] - 1-2 Weeks (call office for apointment.) Wisam Velasco MD [Primary Care Provider] - Time spent managing pt's care (in minutes): 40
[2020-08-15] MEDS ORDERED: ATORVASTATIN 40 MG TAB PO SCH (21:00)
[2020-08-16 00:33] VITALS: O2SAT 98
[2020-08-16 00:43] VITALS: BP 167/74; TEMP 98.2
== END 2020-08-15 21:30 | disposition home or self-care (01) ==
LOC: ER 17:03 → ERHOLD 19:53 → 2ND 21:12
PROVIDERS: ADMIT Hospitalist; ATTEND Hospitalist
DX: I63.81 Other cerebral infarction due to occlusion or stenosis of small artery (principal); I10 Essential (primary) hypertension; F41.9 Anxiety disorder, unspecified; Z85.828 Personal history of other malignant neoplasm of skin; Z20.822 Contact with and (suspected) exposure to COVID-19
CPT/HCPCS: 96365; 93005; 93306; 85025 ×2; 80048; 36415; 83735 ×2; 85610; 80061; 82947; 80076; 84443; 84484; 84439; 80053; 83880; 70496; 70498; 70450; 71045; 70553; 70544; 70549; 97161; 99285; U0003; Q9967; A9577; J1650; J7030; G0378 ×3